=== PATIENT | female | born 1995 | race Caucasian/White ===

== ENCOUNTER 2024-01-19 09:58 | Emergency (ER) | payer OTHER ==
[~2024-01-19] VITALS: Ht 157.5 cm; Wt 75.4 kg
[2024-01-19 10:03] VITALS: BP 122/93; PULSE 82; RESP 19; TEMP 97.8; O2SAT 99
[2024-01-19] MEDS ORDERED: ONDA8TAB87 PO (11:10)
[2024-01-19] MEDS ORDERED: IBUP-2213 PO (11:10)
[2024-01-19] MEDS: ONDANSETRON 4 MG ODT PO ONE (11:21)
[2024-01-19 12:00] VITALS: BP 122/93; PULSE 82; RESP 19; TEMP 97.8; O2SAT 99
== END 2024-01-19 12:00 | disposition home or self-care (01) ==
LOC: MED 09:58
DX: R20.0 Anesthesia of skin (principal); R07.89 Other chest pain; R11.0 Nausea; R06.02 Shortness of breath; R42 Dizziness and giddiness
CPT/HCPCS: 93005; 99283; Q0162